=== PATIENT | female | born 1995 | race Caucasian/White ===

== ENCOUNTER 2018-03-30 10:16 | Emergency (ER) | payer MEDICAID ==
[~2018-03-30] VITALS: Ht 167.6 cm; Wt 76.3 kg
[2018-03-30 10:24] VITALS: BP 120/76
[2018-03-30] MEDS ORDERED: CLINDAMYCIN 600 MG/4 ML VIAL IM ONE (11:05)
[2018-03-30] MEDS ORDERED: diphenhydrAMINE 50 MG/ML VIAL IM ONE (11:05)
[2018-03-30] MEDS ORDERED: DEXAMETHASONE 10 MG/ML VIAL IM ONE (11:05)
[2018-03-30] MEDS ORDERED: ALBUTEROL SULFATE/IPRATROPIU 3 ML SOL IH ONE (11:05)
[2018-03-30 11:39] LABS: BARBITURATE, URINE NEG. ng/ml (NEG <=200); BENZODIAZEPINE, URINE NEG. ng/mL (NEG <=200); CANNABINOID, URINE POS. ng/mL (NEG <=50); COCAINE, URINE NEG. ng/mL (NEG <=300); OPIATE, URINE NEG. ng/mL (NEG <=2000); PHENCYCLIDINE SCREEN,URINE NEG. ng/mL (NEG <=25)
[2018-03-30 12:40] VITALS: BP 103/98
== END 2018-03-30 12:40 | disposition home or self-care (01) ==
LOC: MED 10:16
DX: J11.1 Influenza due to unidentified influenza virus with other respiratory manifestations (principal); F17.200 Nicotine dependence, unspecified, uncomplicated
CPT/HCPCS: 36415; 80305; 81002; 81025; 87804; 94640; 96372; 99283; J1100; J1200; J3490; J7620

== ENCOUNTER 2019-02-02 12:10 | Emergency (ER) | payer MEDICAID ==
[~2019-02-02] VITALS: Ht 167.6 cm; Wt 77.1 kg
--- NOTE | 2019-02-02 12:16 | NUR ---
Patient ambulated to bed 5. RN evaluating patient at bedside.
[2019-02-02 12:22] VITALS: BP 131/89
--- NOTE | 2019-02-02 12:26 | NUR ---
PT C/O HAD SX OF PAIN ON LEFT LATERAL THIGH RADIATING TO LOWER LEG AND NUMBNESS ON LEFT FOOT. REPORTS HAVING LOWER BACK PAIN OCCASIONALLY AND BRON WITH LEFT FLATFOOT. PATIENT STATES PAIN OF 6/10 AT THIS TIME; VSS; PATIENT POSITIONED FOR COMFORT; HOB ELEVATED; BEDRAILS UP X1; BED DOWN. ER MD MADE AWARE OF PT STATUS.
--- NOTE | 2019-02-02 13:34 | NUR ---
Dr. Deleon is evaluating the patient at bedside.
[2019-02-02] MEDS ORDERED: KETOROLAC 30 MG/ML VIAL IM ONE (13:40)
--- NOTE | 2019-02-02 13:54 | NUR ---
Ultrasound at bedside.
[2019-02-02 15:33] VITALS: BP 128/85
== END 2019-02-02 15:32 | disposition home or self-care (01) ==
LOC: MED 12:10
DX: M79.10 Myalgia, unspecified site (principal); R60.9 Edema, unspecified; J45.909 Unspecified asthma, uncomplicated
CPT/HCPCS: 81002; 81025; 93971; 96372; 99284; J1885; Q0092

== ENCOUNTER 2019-08-18 11:44 | Emergency (ER) | payer MEDICAID ==
[~2019-08-18] VITALS: Ht 167.6 cm; Wt 82.2 kg
[2019-08-18 11:56] VITALS: BP 137/79
--- NOTE | 2019-08-18 11:56 | NUR ---
24 Y/O F C/C N/V/D SINCE LAST NIGHT AFTER EATING [employer], PER PT HAD SEVERAL EPISODES OF DIARRHEA AND VOMITING. APPROX 2 DIARRHEA; >5 VOMITING. LAST V/D AT 0730 HOURS TODAY. PT CURRENTLY FEELS NAUSEATED WITH POOR APPETITIE/INTAKE. NEEDS WORK CLEARANCE IN ORDER TO GO BACK TO WORK DUE TO CURRENT PANDEMIC CRISIS. PT NKA. HX ASTHMA. RX ALBUTEROL PRN. SIDE RAIL X1
--- NOTE | 2019-08-18 12:02 | NUR ---
Patient ambulated to bed 11. RN evaluating patient at bedside.
--- NOTE | 2019-08-18 12:03 | NUR ---
ERMD AT BEDSIDE
[2019-08-18 12:06] VITALS: BP 137/79
== END 2019-08-18 12:07 | disposition home or self-care (01) ==
LOC: MED 11:44
DX: A05.9 Bacterial foodborne intoxication, unspecified (principal); R19.7 Diarrhea, unspecified; R11.0 Nausea; J45.909 Unspecified asthma, uncomplicated
CPT/HCPCS: 99283

== ENCOUNTER 2020-11-23 11:45 | Emergency (ER) | payer MEDICAID, SELFPAY ==
[~2020-11-23] VITALS: Ht 167.6 cm; Wt 74.8 kg
[2020-11-23 11:53] VITALS: BP 128/71
[2020-11-23] MEDS ORDERED: ONDA-24 PO (12:34)
[2020-11-23 12:43] VITALS: BP 128/71
--- NOTE | 2020-11-23 12:44 | NUR ---
Patient discharged with v/s stable. Written and verbal after care instructions given NAUSEand explained. Patient alert, oriented and verbalized understanding of instructions. Ambulatory with steady gait. All questions addressed prior to discharge. ID band removed. Patient advised to follow up with PMD. Rx of ZOFRAN 4MG PO Q68 PRN N/V given. Patient educated on indication of medication including possible reaction and side effects. Opportunity to ask questions provided and answered.
== END 2020-11-23 12:44 | disposition home or self-care (01) ==
LOC: MED 11:45
DX: R11.0 Nausea (principal); J45.909 Unspecified asthma, uncomplicated; Z79.899 Other long term (current) drug therapy
CPT/HCPCS: 99283

== ENCOUNTER 2021-01-07 16:02 | Emergency (ER) | payer MEDICAID, SELFPAY ==
[~2021-01-07] VITALS: Ht 167.6 cm; Wt 72.6 kg
[~2021-01-07 16:02] MED LIST: ONDA-24 PO
[2021-01-07 16:10] VITALS: BP 160/108
--- NOTE | 2021-01-07 16:20 | NUR ---
BIB SELF C/O COUGH, DIFFICULTY BREATHING X TODAY. O2 SAT 97% AT THIS TIME. PMH: ASTHMA
[2021-01-07] MEDS ORDERED: ALBUTEROL SULFATE/IPRATROPIU 3 ML SOL IH ONE (17:26)
--- NOTE | 2021-01-07 17:30 | NUR ---
[facility] THERAPY AND RESPIRATORY DRUG GIVEN ORDERED
[2021-01-07] MEDS: ALBUTEROL SULFATE/IPRATROPIU 3 ML SOL IH ONE ×2 (17:39→18:16)
--- NOTE | 2021-01-07 18:15 | NUR ---
RT AT A FOR 2ND BREATHING TREATMENT.
[2021-01-07] MEDS: predniSONE 20 MG TAB PO ONE (18:21)
[2021-01-07] MEDS ORDERED: PRED20TA5 PO (18:31)
[2021-01-07] MEDS ORDERED: ALBU-118 INH (18:31)
[2021-01-07 18:42] VITALS: BP 159/96
--- NOTE | 2021-01-07 18:42 | NUR ---
Patient discharged with v/s stable. Written and verbal after care instructions given and explained. Patient alert, oriented and verbalized understanding of instructions. Ambulatory with steady gait. All questions addressed prior to discharge. ID band removed. Patient advised to follow up with PMD. Rx of DELTASONE & PROAIR Hfa given. Patient educated on indication of medication including possible reaction and side effects. Opportunity to ask questions provided and answered.
== END 2021-01-07 18:42 | disposition home or self-care (01) ==
LOC: MED 16:02
DX: J45.901 Unspecified asthma with (acute) exacerbation (principal); Z79.899 Other long term (current) drug therapy; Z79.51 Long term (current) use of inhaled steroids
CPT/HCPCS: 94640; 99285; J7512

== ENCOUNTER 2021-03-01 13:19 | Emergency (ER) | payer MEDICAID ==
[~2021-03-01] VITALS: Ht 167.6 cm; Wt 72.6 kg
[~2021-03-01 13:19] MED LIST changes: +ALBU-118 INH; +ONDA-188 PO; -ONDA-24 PO; +PRED20TA5 PO
[2021-03-01 13:25] VITALS: BP 131/89
--- NOTE | 2021-03-01 13:30 | NUR ---
PT AMB TO BED 3.
[2021-03-01] MEDS ORDERED: ALBUTEROL 0.083% 2.5 MG/3 ML NEBU INH ONE ×2 (13:45→14:15)
[2021-03-01] MEDS ORDERED: predniSONE 20 MG TAB PO ONE (13:45)
[2021-03-01] MEDS ORDERED: ALBUTEROL SULFATE/IPRATROPIU 3 ML SOL IH ONE ×2 (13:45→14:15)
--- NOTE | 2021-03-01 13:45 | NUR ---
25 Y/O F BIB SELF FROM HOME, PATIENT PRESENTS TO ED WITH CHEST TIGHTNESS, WHEEZING AT NIGHT TIME, SOB AND NON PRODUCTIVE COUGH FOR 3 MONTHS, SYMPTOMS COME AND GO. PT STATES SHE HAS BEEN HERE BEFORE FOR SAME C/O, BUT HAS NOT BEEN ABLE TO FULLY RECOVER. DENIES N/V/D; SKIN IS PINK/WARM/DRY; AAOX4 WITH EVEN AND STEADY GAIT; LUNGS WHEEZING BL; HR EVEN AND REGULAR; PATIENT STATES PAIN OF 0/10 AT THIS TIME, STATES HER CHEST C/O IS MORE PRESSURE THAN PAIN; VSS; PATIENT POSITIONED FOR COMFORT; HOB ELEVATED; BEDRAILS UP X2; BED DOWN. ER MD MADE AWARE OF PT STATUS. PMH: ASTHMA NKA MED: INHALER (NEEDS REFILL)
--- NOTE | 2021-03-01 13:50 | NUR ---
Respiratory Therapist at bedside for respiratory intervention.
[2021-03-01] MEDS ORDERED: ALBU0.0912 IH (13:52)
[2021-03-01] MEDS ORDERED: PRED20TA5 PO (13:52)
--- NOTE | 2021-03-01 14:20 | NUR ---
Respiratory Therapist at bedside for respiratory intervention. Patient tolerated WELL FOR FIRST AND SECOND TX.
--- NOTE | 2021-03-01 14:48 | NUR ---
Patient discharged with v/s stable. Written and verbal after care instructions given and explained. Patient alert, oriented and verbalized understanding of instructions. Ambulatory with steady gait. All questions addressed prior to discharge. ID band removed. Patient advised to follow up with PMD. Rx of ALBUTEROL, PREDNISONE (SENT) given. Patient educated on indication of medication including possible reaction and side effects. Opportunity to ask questions provided and answered.
[2021-03-01 14:49] VITALS: BP 131/89
== END 2021-03-01 14:49 | disposition home or self-care (01) ==
LOC: MED 13:19
DX: J45.901 Unspecified asthma with (acute) exacerbation (principal); F17.200 Nicotine dependence, unspecified, uncomplicated; Z79.899 Other long term (current) drug therapy
CPT/HCPCS: 94640; 99285; J7512; J7613

== ENCOUNTER 2023-03-27 11:33 | Emergency (ER) | payer OTHER ==
[~2023-03-27] VITALS: Ht 167.6 cm; Wt 86.2 kg
[~2023-03-27 11:33] MED LIST changes: +ALBU0.0912 IH; +CEPH-588 PO; +LIB25 PO; +LID5T TP
[2023-03-27 11:46] VITALS: BP 143/80; PULSE 89; RESP 15; TEMP 97.7; O2SAT 100
[2023-03-27 12:16] LABS: APPEARANCE,URINE CLEAR (CLEAR); BILIRUBIN,URINE 1+ (NEGATIVE); BLOOD, URINE NEGATIVE (NEGATIVE); COLOR,URINE YELLOW (YELLOW); LEUKOCYTE ESTERASE ,URINE NEGATIVE (NEGATIVE); NITRITE, URINE NEGATIVE (NEGATIVE); PROTEIN,URINE NEGATIVE (NEGATIVE); UGLUCOSE NEGATIVE (NEGATIVE); UROBILINOGEN,URINE 0.2 EU/dL (0.2 - 1)
[2023-03-27 12:22] LABS: ICTOTEST NEGATIVE (NEGATIVE)
[2023-03-27 13:12] LABS: BASOPHILS % (AUTO) 0.4 % (0.0-2.0); EOSINOPHILS # (AUTO) 0.4 K/uL (0-0.4); EOSINOPHILS % (AUTO) 6.1 % (0.0-4.0); HEMATOCRIT 40.5 % (36-48); LYMPHOCYTES # (AUTO) 1.9 K/uL (2.5-16.5); LYMPHOCYTES % (AUTO) 26.3 % (20.5-51.1); MEAN CORPUSCULAR HEMOGLOBIN 31 pg (27-31); MEAN CORPUSCULAR HGB CONC 35 g/dL (33-37); MEAN CORPUSCULAR VOLUME 88.7 fL (80-94); MONOCYTES # (AUTO) 0.8 K/uL (0.8-1.0); NEUTROPHILS % (AUTO) 56.2 % (42.2-75.2); PLATELET COUNT (AUTO) 264 K/uL (140-450); RED BLOOD CELL COUNT(AUTO) 4.57 MIL/uL (4.20-5.40); RED CELL DISTRIBUTION WIDTH 12.4 % (11.6-13.7); WHITE BLOOD COUNT (AUTO) 7.1 K/uL (4.8-10.8)
[2023-03-27 13:26] LABS: ALANINE AMINOTRANSFERASE 42 U/L (12-78); ALBUMIN 3.4 g/dL (3.4-5.0); ALCOHOL, BLOOD < 3 mg/dL (<10); ALKALINE PHOSPHATASE 66 U/L (50-136); ASPARTATE AMINOTRANSFERASE 43 U/L (15-37); CALCIUM 8.6 mg/dL (8.5-10.1); CARBON DIOXIDE 22.2 mmol/L (21-32); CHLORIDE 100 mmol/L (98-107); CREATININE 0.7 mg/dL (0.6-1.3); GFR ARICAN-AMERICAN 128 mL/min (>90); GFR NON ARICAN-AMERICAN 106 mL/min (>90); GLUCOSE 83 mg/dL (74-106); LIPASE 24 U/L (16-77); POTASSIUM 4.2 mmol/L (3.5-5.1); SODIUM SERUM 135 mmol/L (136-145); TOTAL BILIRUBIN 0.9 mg/dL (0.0-1.0); TOTAL PROTEIN, SERUM 7.4 g/dL (6.4-8.2); UREA NITROGEN, BLOOD 9 mg/dL (7-18)
[2023-03-27 13:53] VITALS: BP 143/80; PULSE 89; RESP 15; TEMP 97.7; O2SAT 100
== END 2023-03-27 13:53 | disposition home or self-care (01) ==
LOC: MED 11:33
DX: R10.11 Right upper quadrant pain (principal); M54.50 Low back pain, unspecified; R03.0 Elevated blood-pressure reading, without diagnosis of hypertension; I10 Essential (primary) hypertension; Z79.899 Other long term (current) drug therapy
CPT/HCPCS: 36415; 80053; 81003; 81025; 83690; 85025; 99283; G0482